=== PATIENT | male | born 1980 | race Hispanic/Latino ===

== ENCOUNTER 2025-05-14 00:19 | Emergency (ER) | payer OTHER ==
[~2025-05-14] VITALS: Ht 170.2 cm; Wt 95.3 kg
[2025-05-14 01:06] LABS: IMMATURE GRANULOCYTE ABSOLUTE 0.07 K/uL (0-1); NUCLEATED RED BLOOD CELLS 0.0 % (0.0-0.19); PLATELET COUNT (AUTO) 276 K/uL (130-400); RED BLOOD CELL COUNT(AUTO) 5.38 MIL/uL (4.50-6.20); RED CELL DISTRIBUTION WIDTH 13.4 % (11.0-15.5); WHITE BLOOD COUNT (AUTO) 16.3 K/uL (4.8-10.8)
--- NOTE | 2025-05-14 01:14 | EKG ---
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
[2025-05-14 01:20] LABS: ALCOHOL, BLOOD < 3 mg/dL (0-10); CREATINE KINASE, TOTAL 111 U/L (21-232); CREATININE 1.5 mg/dL (0.5-1.3); GLOMERULAR FILTR. RATE CALC 58 mL/min (>90); GLUCOSE,RANDOM 154 mg/dL (70-105); SODIUM SERUM 138 mmol/L (136-145); UREA NITROGEN, BLOOD 16 mg/dL (7-18)
[2025-05-14 01:27] LABS: ADD UA MICROSCOPIC YES; APPEARANCE,URINE CLEAR (CLEAR); GLUCOSE, URINE (UA) NEGATIVE (NEGATIVE); LEUKOCYTE ESTERASE ,URINE NEGATIVE Leu/uL (NEGATIVE); NITRATE,URINE NEGATIVE (NEGATIVE); OCCULT BLOOD,URINE SMALL (NEGATIVE)
[2025-05-14 01:30] LABS: SQUAMOUS EPITHELIAL CELL,UR RARE /HPF (0-2)
[2025-05-14 01:35] LABS: AMPHET/METH SCREEN,URINE NEGATIVE (NEGATIVE); BARBITURATE SCREEN, URINE NEGATIVE (NEGATIVE); CANNABINOID SCREEN,URINE NEGATIVE (NEGATIVE); COCAINE SCREEN,URINE NEGATIVE (NEGATIVE)
[2025-05-14] MEDS: NS-20 MEQ KCL 1000ML 1,000 ML IV ONE (02:11)
[2025-05-14] MEDS: leveTIRACEtam 500 MG/5 ML SD V 1,000 MG in 0.9%NACL 100ML 100 ML IV SCH (02:12)
--- NOTE | 2025-05-14 02:47 | ERN ---
ED Note History of Present Illness Stated Complaint: SEIZURE Chief Complaint: Seizure Time Seen by MD: 00:08 Dictation: This is a 44-year-old male who was brought to the emergency room by EMS with complaints of a seizure activity lasting for 3-4 minutes. Apparently patient was sitting in the game room and playing when he experienced a tonic-clonic seizure activity as per the family members. Patient had a similar episode a year ago and is not on any seizure medications. Extremely poor historian and does not have any health maintenance. He denied any headache, fever, nausea vomitings. At presentation patient's blood pressure was 193/127 with a heart rate of 114 respiratory rate of 18 temperature 98.6 with a pulse oximetry of 98% on room air Patient is an everyday cigarette smoker. He has not seen any physician so he is unaware if he has a hypertensive. There are no records to review as to the reason for his seizures in the past and there are no family members at bedside to obtain collateral information Allergies: Coded Allergies: No Known Drug Allergies (Unverified Allergy, Unknown, 05/14/25) Past Medical History Past Medical History: Seizure Surgical History: None Family History: Negative Social History: Smokers RN Note Reviewed/Agreed w/PFSH: Yes Review of System Dictation Constitutional: Negative for fever,chills, and weight loss Eyes: Negative for injury, pain,redness, and discharge ENT: Negative for injury,pain or swelling Cardiovascular: Negative for chest pain, palpitations, and edema Respiratory: Negative for shortness of breath, cough, and wheezing, Abdomen/GI: Negative for abdominal pain, nausea, vomiting, diarrhea, and constipation Back: Negative for injury and pain : Negative for injury, bleeding and discharge MS/Extremity: Negative for injury and deformity Skin: Negative for rash, and discoloration Neuro: Negative for headache, weakness, numbness, tingling, and positive for seizure Psych: Negative for suicide ideation, homicidal ideation, and hallucinations Initial Vital Sign VS Vital Signs Date Time Temp Pulse Resp B/P (MAP) Pulse Ox O2 Delivery O2 Flow Rate FiO2 05/14/25 00:24 98.6 114 18 193/127 98 Room Air 0 05/14/25 03:20 21 Physical Exam Dictation General: awake, alert, NAD somewhat slow Head/Face: Normocephalic, atraumatic Eyes: PERRL, EOMI, vision at baseline ENT: oral cavity clear, TMs clear, no signs of infection Neck: Trachea midline, supple, no nuchal rigidity Cardiovascular: RRR, normal S1/S2, No MRGs, no JVD Respiratory: CTAB, no respiratory distress, No rales or wheezes Abdomen: Soft, non-tender, non-distended, normal bowel sounds, no guarding or rebound. Skin: Warm, dry, normal turgor, no rash MS/Extremity: Pulses equal, no cyanosis, neurovascular intact, FROM Neuro: COAx3, GCS 15, strength 5/5, CN 2-12 intact, normal cerebellar exam, I did not test his gait Psych: Normal behavior, mood, and affect normal Extremities-trace edema without any palpable cords, Homans sign is negative Results (Laboratory/Radiology) Laboratory/Radiology Laboratory Tests Test 05/14/25 00:36 05/14/25 00:47 Urine Color LIGHT-YELLOW (YELLOW) Urine Appearance CLEAR (CLEAR) Urine pH 6.0 (5.0-8.0) Urine Specific [place] 1.014 (1.001-1.031) Urine Protein 300 mg/dL (NEGATIVE) H Urine Glucose (UA) NEGATIVE mg/dL (NEGATIVE) Urine Ketones NEGATIVE mg/dL (NEGATIVE) Urine Occult Blood SMALL (NEGATIVE) H Urine Nitrate NEGATIVE (NEGATIVE) Urine Bilirubin NEGATIVE mg/dL (NEGATIVE) Urine Urobilinogen 0.2 mg/dL (0.2-1.0) Urine Leukocyte Esterase NEGATIVE Aba/uL Urine RBC 2-5 /HPF (0-1) H Urine WBC 2-5 /HPF (0-1) H Urine Squamous Epithelial Cells RARE /HPF (0-2) Urine Bacteria FEW /HPF (None Seen) Urine Opiates Screen NEGATIVE (NEGATIVE) Urine Barbiturates Screen NEGATIVE (NEGATIVE) Urine Phencyclidine Screen NEGATIVE (NEGATIVE) Urine Amphetamines Screen NEGATIVE (NEGATIVE) Urine Benzodiazepines Screen NEGATIVE (NEGATIVE) Urine Cocaine Screen NEGATIVE (NEGATIVE) Urine Marijuana (THC) Screen NEGATIVE (NEGATIVE) White Blood Count 16.3 K/uL (4.8-10.8) H Red Blood Count 5.38 MIL/uL (4.50-6.20) Hemoglobin 16.5 g/dL (14.0-18.0) Hematocrit 47.7 % (42-54) Mean Corpuscular Volume 88.7 fL (79-99) Mean Corpuscular Hemoglobin 30.7 pg (27.0-33.0) Mean Corpuscular Hemoglobin Concent 34.6 g/dL (32.0-36.0) Red Cell Distribution Width 13.4 % (11.0-15.5) Platelet Count 276 K/uL (130-400) Mean Platelet Volume 10.0 fL (7.5-10.5) Immature Granulocyte % (Auto) 0.4 % (0-1) Neutrophils (%) (Auto) 82.0 % (40.0-77.0) H Lymphocytes (%) (Auto) 11.4 % (21.0-51.0) L Monocytes (%) (Auto) 5.2 % (3.0-13.0) Eosinophils (%) (Auto) 0.5 % (0.0-8.0) Basophils (%) (Auto) 0.5 % (0.0-5.0) Neutrophils # (Auto) 13.3 K/uL (1.8-7.7) H Lymphocytes # (Auto) 1.9 K/uL (1.0-4.8) Monocytes # (Auto) 0.9 K/uL (0.1-1.0) Eosinophils # (Auto) 0.08 K/uL (0.00-0.70) Basophils # (Auto) 0.08 K/uL (0.00-0.20) Absolute Immature Granulocyte (auto 0.07 K/uL (0-1) Nucleated Red Blood Cells 0.0 % (0.0-0.19) Sodium Level 138 mmol/L (136-145) Potassium Level 2.8 mmol/L (3.5-5.1) *L Chloride Level 102 mmol/L (101-111) Carbon Dioxide Level 25 mmol/L (21-32) Blood Urea Nitrogen 16 mg/dL (7-18) Creatinine 1.5 mg/dL (0.5-1.3) H Glomerular Filtration Rate Calc 58 mL/min (>90) Random Glucose 154 mg/dL (70-105) H Total Calcium 8.9 mg/dL (8.5-10.1) Total Creatine Kinase 111 U/L (21-232) Salicylates Level < 2.8 mg/dL (2.8-20.0) L Acetaminophen Level < 1 mcg/mL (10-29) L Serum Alcohol < 3 mg/dL (0-10) Labs Reviewed?: Yes EKG Comment: 12 lead EKG done on 05/14/2025 at 1:05 a.m. showed a heart rate of 105, [place] interval 155, QRS 81, QT/QTC 347/459. Impression sinus tachycardia with nonspecific ST-T changes and LVH. EKG rhythm strip shows sinus tachycardia with slightly borderline QT, nonspecific ST-T changes Interpreted by ER MD Dr. Bacon CT Scan Comment: REASON: seizure ORDERING PHYSICIAN: DOROTHY BACON MD PROCEDURE: HEAD WO - CT HEAD/BRAIN W/O CONTRAST EXAM: CT Head Without IV contrast. CLINICAL HISTORY: Seizure TECHNIQUE: Axial computed tomography images of the head/brain without intravenous contrast. COMPARISON: None provided. FINDINGS: BRAIN: No evidence of acute hemorrhage. No mass lesion. No CT evidence for acute territorial infarct. No midline shift or extra-axial collections. There is evidence of prominent sulcal spaces over the bilateral cerebral hemispheres, suggestive of atrophic changes. There is evidence of bilateral symmetrical periventricular hypodensity in the centrum semiovale region of white matter and brainstem, as well as in the cerebellum, suggestive of small vessel ischemic changes. Prominent cisterna magna versus arachnoid cyst in the posterior fossa, measuring about 2.7 x 1.8 cm. VENTRICLES: No hydrocephalus. ORBITS: Chronic mild inferior bulge in the right orbital floor. Otherwise, the bilateral orbits are within normal limits. SINUSES AND MASTOIDS: 1.1 cm polyp versus mucosal retention cyst within the left maxillary sinus. The remaining paranasal sinuses are clear. The mastoid air cells are clear bilaterally. BONES: No fracture. SOFT TISSUES: Unremarkable. IMPRESSION: No acute intracranial abnormality. Mild cerebral atrophic changes. Small vessel ischemic changes. Old lacunar infarct in the right basal ganglia and in the right periventricular region Focal gliotic changes in the left cerebellum. Prominent cisterna magna versus arachnoid cyst in the posterior fossa. /[place] DICTATED BY: CANDELARIO ARANA Jr., MD DATE: 05/14/25413 ELECTRONICALLY SIGNED BY: CANDELARIO ARANA Jr., MD DATE: 05/14/25413 ED Course ED Course Orders Procedure Category Date Status Time Cbc With Differential LAB 05/14/25 Complete 00:24 Alcohol, Blood LAB 05/14/25 Complete 00:56 Salicylate LAB 05/14/25 Complete 00:56 Acetaminophen LAB 05/14/25 Complete 00:56 Creatine Kinase, Total LAB 05/14/25 Complete 00:56 Ct Head/Brain W/O CT 05/14/25 Resulted Contrast 00:56 12 Lead Ekg Tracing- EKG 05/14/25 Resulted Technical 00:56 Levetiracetam 500 PHA 05/14/25 In Process Mg/5 Ml Sd V (Keppra 5 06:00 Basic Metabolic Panel LAB 05/14/25 Complete 00:47 Drug Screen Urine LAB 05/14/25 Complete 01:04 Urinalysis Profile LAB 05/14/25 Complete 01:04 Potassium Bicarb/Cit PHA 05/14/25 Complete Ac 25meq (K-Lyte Ta 02:00 Ns-20 Meq Kcl 1000ml PHA 05/14/25 Complete (Ns-20 Meq Kcl 1000 02:00 Levetiracetam 500 PHA 05/14/25 Complete Mg/5 Ml Sd V (Keppra 5 02:12 Hydralazine 20mg Inj PHA 05/14/25 Complete (Apresoline 20mg In 03:30 Metoprolol Tartrate PHA 05/14/25 Complete (Lopressor) 04:30 Nicardipine 25mg Inj PHA 05/14/25 In Process (Cardene 25mg Inj) 07:30 Nicardipine 25mg Inj PHA 05/14/25 Complete (Cardene 25mg Inj) 07:35 Acetaminophen 500mg PHA 05/14/25 Complete Tab (Tylenol 500mg T 08:00 Current Medications Medications (Trade) Dose Ordered Sig/Judy Route PRN Reason Start Time Stop Time Status Last Admin Dose Admin Acetaminophen (TYLenol 500MG TAB) 1,000 mg ONCE ONCE PO 05/14/25 08:00 05/14/25 08:01 DC 05/14/25 07:44 Hydralazine HCl (APRESOLine 20MG INJ) 20 mg ONCE ONCE IV 05/14/25 03:30 05/14/25 03:31 DC 05/14/25 04:05 Levetiracetam (kepPRA 500 MG/5 ML SD VIAL) 500 mg STK-MED ONCE IV 05/14/25 02:12 05/14/25 02:12 DC Levetiracetam 1000 mg/Sodium Chloride 100 ml @ 400 mls/hr Q8H IV 05/14/25 06:00 06/13/25 05:59 05/14/25 02:12 Metoprolol Tartrate (loprESSOR) 5 mg ONCE ONCE IV 05/14/25 04:30 05/14/25 04:43 DC 05/14/25 05:08 Nicardipine HCl (CarDENE 25MG INJ) 25 mg STK-MED ONCE IV 05/14/25 07:35 05/14/25 07:35 DC Nicardipine HCl 25 mg/Sodium Chloride 250 ml @ 0 mls/hr PROTOCOL IV 05/14/25 07:30 06/13/25 07:29 05/14/25 07:44 Potassium Bicarbonate (K-Lyte Tablet Eff 25 Meq Tablet.eff) 50 meq ONCE ONCE PO 05/14/25 02:00 05/14/25 02:01 DC 05/14/25 02:11 Potassium Chloride/Sodium Chloride 1,000 ml @ 500 mls/hr Q2H ONCE IV 05/14/25 02:00 05/14/25 03:59 DC 05/14/25 02:11 Vital Signs Date Time Temp Pulse Resp B/P (MAP) Pulse Ox O2 Delivery O2 Flow Rate FiO2 05/14/25 07:44 83 191/122 05/14/25 07:38 98.8 83 18 183/121 98 Room Air* 0 05/14/25 06:41 95 17 180/107 96 Room Air* 0 05/14/25 05:24 98.6 94 20 188/115 97 Room Air* 0 05/14/25 05:16 100 18 214/179 98 Room Air* 0 05/14/25 05:08 104 215/138 05/14/25 04:05 122 05/14/25 04:05 98.8 114 18 210/140 98 Room Air* 0 05/14/25 03:20 98.6 120 20 224/152 99 Room Air* 0 05/14/25 00:24 98.6 114 18 193/127 98 Room Air 0 We will perform diagnostic labs, advanced imaging and administer medications according to the patient's complaint. Once the results are available, will review and personally interpreted the labs to rule out any acute life- threatening emergency the trach require immediate intervention and treatment. I will then re-evaluate the patient after treatment and diagnostic exams have return to determine whether the patient requires any further testing, can safely be discharged home or need further admission to hospital for additional tiffanie tment and evaluation. Medical Decision Making MDM Differential diagnosis: Seizure due to noncompliance with seizure medications, hypertensive emergency related seizure, recreational drug abuse This is a 44-year-old male who was brought to the emergency room by EMS with complaints of a seizure activity lasting for 3-4 minutes. Apparently patient was sitting in the game room and playing when he experienced a tonic-clonic seizure activity as per the family members. Patient had a similar episode a year ago and is not on any seizure medications. Extremely poor historian and does not have any health maintenance. He denied any headache, fever, nausea vomitings. At presentation patient's blood pressure was 193/127 with a heart rate of 114 respiratory rate of 18 temperature 98.6 with a pulse oximetry of 98% on room air Patient is an everyday cigarette smoker. He has not seen any physician so he is unaware if he has a hypertensive. There are no records to review as to the reason for his seizures in the past and there are no family members at bedside to obtain collateral information Labs reviewed. CBC shows a white count of 16.3 hemoglobin 16.5 platelets 276. BNP 7 is significant for a potassium of 2.8 BUN and creatinine are 16 and 1.5. Total CK is 111. Urine drug screen and serum drug screen are negative. Urinalysis shows some proteinuria and occult blood. CT scan of the head shows some chronic changes including a polyp in the maxillary sinus but no acute intracranial changes noted. 5:00AM-patient did not respond to a trial of hydralazine and Lopressor. He was initiated on a Cardene drip for blood pressure control. 5:50 a.m. transfer initiated due to lack of neurology services at this facility Eventually I spoke with ER physician Dr. Osei at [facility], and discussed the patient and need for neurology and as the patient is on Cardene drip we will need ICU bed. She accepted the patient in transfer-ER to ER Rationale: Tests considered and ordered secondary to shared decision making include: labs, ECG and radiology Previous outside records reviewed: Old ER visits. Risk of complication and/or morbidity or mortality of patient management: None Medications-Per medication reconciliation Need for hospitalization: Patient does meet criteria for hospitalization. Need for emergency major/minor surgery: No There are no social concerns with this patient. Prescription drug management Prescriptions will include symptomatic care Patient's prior external medical records from other ER visits were reviewed by me as indicated. Prior testing and results from previous visits were reviewed. Prior tests were taken into account with medical decision making and resource utilization, independent historian/historians were used to obtain complete medical history. I independently interpreted the test that were performed, results were reviewed by me and considered findings on radiology if ordered. Medical management and examination interpretation discussions were had by me with other qualified healthcare professionals as indicated for the patient's care. Problem List Problem List: (1) Hypertensive emergency (2) Seizure (3) Hypokalemia (4) Acute kidney injury DX & DISP Disposition: Transfer Departure Impression: Primary Impression: Hypertensive emergency Additional Impressions: Seizure, Hypokalemia, Acute kidney injury Condition: Stable Additional Instructions: The patient has been informed about all the diagnostic tests and procedures carried out in the emergency room today and has confirmed understanding of the results. Patient will be transferred to a facility that provides a higher level of care since such services are not accessible locally or within our immediate community. The patient is alert oriented and not experiencing any acute distress. There are no signs of sepsis and patient's hemodynamic status is stable at the moment. Medically, the patient is considered stable for transfer Due to lack of availability of neurology services, transfer initiated per warehouse consultant Patient accepted by [facility] as ER to ER transfer in [place] Referrals: NONE (PCP) DOROTHY BACON MD May 14, 2025 02:47
--- NOTE | 2025-05-14 03:13 | NUR ---
PATIENT NOW STATING HE DOES NOT TAKE ANY MEDICATIONS FOR SEIZURES
--- NOTE | 2025-05-14 03:15 | HMCIMG ---
EXAM: CT Head Without IV contrast. CLINICAL HISTORY: Seizure TECHNIQUE: Axial computed tomography images of the head/brain without intravenous contrast. COMPARISON: None provided. FINDINGS: BRAIN: No evidence of acute hemorrhage. No mass lesion. No CT evidence for acute territorial infarct. No midline shift or extra-axial collections. There is evidence of prominent sulcal spaces over the bilateral cerebral hemispheres, suggestive of atrophic changes. There is evidence of bilateral symmetrical periventricular hypodensity in the centrum semiovale region of white matter and brainstem, as well as in the cerebellum, suggestive of small vessel ischemic changes. Prominent cisterna magna versus arachnoid cyst in the posterior fossa, measuring about 2.7 x 1.8 cm. VENTRICLES: No hydrocephalus. ORBITS: Chronic mild inferior bulge in the right orbital floor. Otherwise, the bilateral orbits are within normal limits. SINUSES AND MASTOIDS: 1.1 cm polyp versus mucosal retention cyst within the left maxillary sinus. The remaining paranasal sinuses are clear. The mastoid air cells are clear bilaterally. BONES: No fracture. SOFT TISSUES: Unremarkable. IMPRESSION: No acute intracranial abnormality. Mild cerebral atrophic changes. Small vessel ischemic changes. Old lacunar infarct in the right basal ganglia and in the right periventricular region Focal gliotic changes in the left cerebellum. Prominent cisterna magna versus arachnoid cyst in the posterior fossa. /[place]
--- NOTE | 2025-05-14 07:36 | NUR ---
[place] [facility] [place] [facility] ON ROUTE FOR TRANFER, PENDING EMS.
[2025-05-14 07:38] VITALS: RESP 18; TEMP 98.7; O2SAT 98
[2025-05-14 07:44] VITALS: BP 191/122; PULSE 83
--- NOTE | 2025-05-14 07:53 | NUR ---
EMS ARRIVED FOR TRANSFER
== END 2025-05-14 07:53 | disposition short-term general hospital (02) ==
LOC: EDH 00:19 → EDBD 00:19 → EDH 07:53
DX: I16.1 Hypertensive emergency (principal); R56.9 Unspecified convulsions; E87.6 Hypokalemia; N17.9 Acute kidney failure, unspecified; F17.210 Nicotine dependence, cigarettes, uncomplicated; Z86.73 Personal history of transient ischemic attack (TIA), and cerebral infarction without residual deficits
CPT/HCPCS: 99285; 96365; 70450; 96375 ×3; 82550; 80048; 80305; 85025; 81001; 36415; 96368; 93005; G0481; J3490 ×3; J1953 ×3; J0360; J3480; J7050